=== PATIENT | male | born 1960 | race Caucasian/White ===

== ENCOUNTER → 2018-12-16 | Outpatient (REF) | payer MEDICARE ==
[~2018-12-16] MED LIST: ASPI-757 PO; FLUV100T21 PO; FURO-45 PO; GABA-549 PO; GLIM4TAB50 PO; HYDR-653 PO; LAMO100T52 PO; LEVO-85 PO; LISI-374 PO; METO25TA93 PO; POTA20TA94 PO; SULF-198 PO; ZINC50TA2 PO
== END ==
LOC: ZZIMHLAB 15:23
PROVIDERS: ATTEND Physician Assistant
DX: N39.0 Urinary tract infection, site not specified (principal); B96.89 Other specified bacterial agents as the cause of diseases classified elsewhere
CPT/HCPCS: 87077; 87088; 87186